=== PATIENT | male | born 1975 | race Caucasian/White ===

== ENCOUNTER 2018-09-16 12:53 | Emergency (ER) | payer MEDICAID ==
[~2018-09-16] VITALS: Ht 180.3 cm; Wt 81.6 kg
[2018-09-16 13:00] VITALS: Ht 180.3 cm; Wt 81.6 kg
--- NOTE | 2018-09-16 13:06 | NUR ---
PT BIB [facility] C/C POSSIBLE OVERDOSE QA TESTER PT AAOX4 AT THIS TIME PLACED ON MONITOR DR DAVID AT BEDSIDE TO [facility]
--- NOTE | 2018-09-16 13:12 | NUR ---
RT AT BEDSIDE FOR BREATHING TX ROD CUP FILLER AT BEDSIDE FOR BLOOD DRAW
[2018-09-16 13:31] LABS: BASOPHIL % 1.4 % (0-2); PLATELET COUNT 224 x10^3mcL (130-400); RED CELL DISTRIBUTION WIDTH 13.3 % (11.5-14.5)
[2018-09-16 13:35] LABS: CALCIUM 7.9 mg/dL (8.5-10.1); CARBON DIOXIDE 26.1 mmol/L (21-32); CHLORIDE SERUM 109 mmol/L (98-107); CREATININE SERUM 1.4 mg/dL (0.7-1.3); GFR1 59 mL/min; GLUCOSE SERUM 157 mg/dL (74-106); POTASSIUM SERUM 3.5 mmol/L (3.5-5.1); SODIUM SERUM 145 mmol/L (136-145)
[2018-09-16 13:42] LABS: ALBUMIN 3.5 g/dL (3.4-5.0); ALKALINE PHOSPHATASE 108 U/L (46-116); ALT/SGPT 32 U/L (16-63); AST/SGOT 15 U/L (15-37); BILIRUBIN TOTAL 0.63 mg/dL (0.20-1.00); TOTAL PROTEIN, SERUM 6.9 g/dL (6.4-8.2)
--- NOTE | 2018-09-16 13:49 | NUR ---
PATIENT TRANSFERRED WITHOUT ANY PROBLEM. REPORT GIVEN BY EXTRUSION OPERATOR.
[2018-09-16 14:23] LABS: UA SPECIFIC GRAVITY >=1.030 (1.005-1.035); microscopic required? YES; urine erythrocyte TRACE (NEGATIVE)
[2018-09-16 14:33] LABS: AMPHETAMINE QUAL UR POSITIVE (See below)
--- NOTE | 2018-09-16 14:36 | NUR ---
PER DR MORFIN DECREASE FIO2 TO 50% AND INCREASE THE RATE TO 14 DUE TO ABG .RESULTS
--- NOTE | 2018-09-16 17:11 | NUR ---
PATIENT IN BED SLEEPING AT THIS TIME. NO DISTRESS NOTED.
--- NOTE | 2018-09-16 18:09 | NUR ---
PER DR. MILLER, PATIENT TO BE ON NASAL CANNULA, START AT 4 L. PATIENT STABLE WITH NO SIGNS OF RESPIRATORY DISTRESS. WILL CONTINUE TO MONITOR.
--- NOTE | 2018-09-16 19:10 | NUR ---
REC'D REPORT FROM JENSEN NAVARRETE TO ASSUME CARE.
--- NOTE | 2018-09-16 19:30 | NUR ---
DR FORD AT BEDSIDE MSE PROVIDED FOR TELE ADMIT. PT REFUSED CT SCAN. PT REFUSED TO BE ADMITTED. PT STS I WANT TO LEAVE. ALL RISKS AND BENEFITS EXPLAINED BY DR FORD. PT VERBALIZES I STILL WANT TO LEAVE. DR MILLER MADE AWARE.
--- NOTE | 2018-09-16 19:35 | NUR ---
DR MILLER AT BEDSIDE, EXPLAINED ALL RISKS AND BENEFITS OF LEAVING AMA. EXPLAINED PT STILL ON O2 5LPM VIA NC O2 SAT 96% AND WILL POSSIBLY IF HE LEAVES. PT STS I STILL WANT TO LEAVE AND I WILL BE ALRIGHT. DR MILLER AND PT SIGNED AMA FORM. ALL RISKS AND BENEFITS EXPLAINED X3. PTS LAST VITAL SIGN: BP 135/84 (101), HR 97, RR 16, O2 SAT 98%.
--- NOTE | 2018-09-16 19:45 | NUR ---
RAC IV DC'D WITH CATHETER INTACT. NO ACTIVE BLEEDING NOTED. PRESSURE DSG APPLIED. ALL MONITORS REMOVED. PT AMBULATED OUT LOBBY WITH NO INCIDENT.
[2018-09-16 19:59] VITALS: BP 135/84
== END 2018-09-16 19:45 | disposition left against medical advice (07) ==
LOC: ED 12:53 → DU 19:03
PROVIDERS: Specialist
DX: J45.901 Unspecified asthma with (acute) exacerbation (principal); F15.20 Other stimulant dependence, uncomplicated; Z59.0 Homelessness
CPT/HCPCS: 83880; G0378; G0480; J0171; J2930; J7030; J7613; J7644; Q0092